=== PATIENT | male | born 1990 | race Caucasian/White ===

== ENCOUNTER 2016-06-09 11:48 | Emergency (ER) | payer SELFPAY ==
[~2016-06-09] VITALS: Ht 182.9 cm; Wt 81.6 kg
[2016-06-09] MEDS ORDERED: IV NORMAL SALINE 1000ML BAG 1,000 ML IV SCH (12:31)
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
--- NOTE | 2016-06-09 12:38 | EKG ---
[facility] [address] [place] [address] Test Date: 2016-06-09 Test Time: 11:58:48 Pat Name: MARCE SNELL Department: Room: Gender: M Certified Pharmacy Tech: : [id number] Requested By: MAURICIO MONDRAGON Order Number: [id number] Reading MD: Toy Wise Measurements Intervals Kent Rate: 81 P: 56 IL: 162 QRS: 61 QRSD: 88 T: 15 QT: 352 QTc: 409 Interpretive Statements SINUS RHYTHM Electronically Signed On 06-09-2016 14:08:58 SYSTEMS TECHNICIAN by Toy Wise
[2016-06-09] MEDS ORDERED: ASPIRIN 81 MG TAB.CHEW PO ONE (12:45)
[2016-06-09] MEDS ORDERED: FENTANYL PF 100 MCG/2 ML VIAL. IV PRN (12:45)
--- NOTE | 2016-06-09 12:54 | RAD ---
Indication: Left-sided chest pain. Time of exam 12:43 PM No prior studies are available for comparison. FINDINGS: The heart size is normal. The lungs are clear. No pleural effusion or pneumothorax is identified. The pulmonary vascularity is normal. IMPRESSION: No acute abnormality detected.
[2016-06-09 13:23] LABS: BASO # 0.1 x10^3/uL (0.0-0.2); BASO % 1 % (0-3); EOS % 2 % (0-3); HEMATOCRIT 45.5 % (39.0-53.0); HEMOGLOBIN 15.2 g/dL (13.0-17.5); LYMPH # 1.9 x10^3/uL (1.0-4.8); LYMPH % 19 % (24-48); MEAN CORPUSCULAR HEMOGLOBIN 31 pg (25-35); MEAN CORPUSCULAR HGB CONC 33 g/dL (31-37); MEAN CORPUSCULAR VOLUME 93 fL (79-100); MONO % 5 % (0-9); NEUT % 73 % (31-73); PLATELET COUNT 156 x10^3/uL (140-400); RED CELL DISTRIBUTION WIDTH 13.2 % (11.5-14.5); WHITE BLOOD COUNT 9.6 x10^3/uL (4.0-11.0)
[2016-06-09 13:38] LABS: GFR 89.6; POTASSIUM 4.1 mmol/L (3.5-5.1)
[2016-06-09 13:44] LABS: ALBUMIN 4.3 g/dL (3.4-5.0); DIRECT BILIRUBIN 0.1 mg/dL (0.0-0.2); MAGNESIUM 1.9 mg/dL (1.8-2.4); TOTAL BILIRUBIN 0.4 mg/dL (0.2-1.0); TOTAL PROTEIN 7.1 g/dL (6.4-8.2)
[2016-06-09 13:51] LABS: CKMB INDEX 0.6 % (0-4); CKMB MASS 1.9 ng/mL (0.0-3.6)
[2016-06-09 14:35] VITALS: BP 117/74
[2016-06-09 14:44] LABS: BILIRUBIN,URINE NEGATIVE (NEG); GLUCOSE,URINE NEGATIVE (NEG); NITRITE,URINE NEGATIVE (NEG); PROTEIN,URINE NEGATIVE (NEG-TRACE); UROBILINOGEN,URINE 0.2 mg/dL (0.2 mg/dL)
[2016-06-09] MEDS ORDERED: NAPR500T PO (14:49)
[2016-06-09] MEDS ORDERED: HYDR-971 PO (14:49)
[2016-06-09 14:51] LABS: BARBITURATES NEG (NEG); BENZODIAZEPINES NEG (NEG); CANNABINOIDS POS (NEG); COCAINE NEG (NEG); METHADONE NEG (NEG); OPIATES NEG (NEG); PHENCYCLIDINE NEG (NEG)
[2016-06-09 14:52] LABS: ETHANOL, URINE NEG (NEG)
[2016-06-09 15:00] LABS: BACTERIA,URINE 0 /HPF (0-FEW); RBC,URINE RARE /HPF (0-2); SQUAMOUS EPITHELIAL CELL,UR FEW /LPF; WBC,URINE RARE /HPF (0-4)
== END 2016-06-09 15:38 | disposition home or self-care (01) ==
LOC: ER 11:48
DX: R07.82 Intercostal pain (principal); R09.81 Nasal congestion; R05 Cough; F17.210 Nicotine dependence, cigarettes, uncomplicated; F12.10 Cannabis abuse, uncomplicated; G89.29 Other chronic pain
CPT/HCPCS: 36415; 71020; 80048; 80076; 81001; 82553; 83690; 83735; 84484; 85027; 85379; 93005; 96360; 99285; G0481; J7030

== ENCOUNTER 2016-07-29 09:56 | Emergency (ER) | payer SELFPAY ==
[~2016-07-29] VITALS: Ht 180.3 cm; Wt 72.6 kg
[~2016-07-29 09:56] MED LIST: HYDR-971 PO; NAPR500T PO
[2016-07-29 09:59] VITALS: BP 133/88
[2016-07-29] MEDS ORDERED: HYDR-971 PO (10:23)
[2016-07-29] MEDS ORDERED: SULF1TAB24 PO (10:23)
--- NOTE | 2016-07-29 10:23 | PHYS DOC ---
Past Medical History Past Medical History: No Pertinent History, Other Additional Past Medical Histor: chronic pain Past Surgical History: Other Additional Past Surgical Histo: Chest tube; I&D Alcohol Use: None Drug Use: Marijuana Social History Narrative: last use 2 days ago Adult General Chief Complaint Chief Complaint: ABSCESS HPI HPI Patient is a 26 year old male presents emergency department stating as an abscess on his left buttocks. He states he's had this approximately one week. He denies any drainage or discharge from the site. He states that he has had this in the past in which they've had opened and drained. He states he did have packing at that time. He denies any nausea vomiting fever or chills. Review of Systems Review of Systems Constitutional: Denies fever or chills [] Eyes: Denies change in visual acuity, redness, or eye pain [] HENT: Denies nasal congestion or sore throat [] Respiratory: Denies cough or shortness of breath [] Cardiovascular: No additional information not addressed in HPI [] GI: Denies abdominal pain, nausea, vomiting, bloody stools or diarrhea [] : Denies dysuria or hematuria [] Musculoskeletal: Denies back pain or joint pain [] Integument: Denies rash or skin lesions. C/o abscess to left buttock Neurologic: Denies headache, focal weakness or sensory changes [] Current Medications Current Medications Current Medications Medications (Trade) Dose Ordered Sig/[facility] Start Time Stop Time Status Last Admin Dose Admin Lidocaine/Sodium Bicarbonate (Buffered Lidocaine 1%) 20 ml 1X ONCE 07/29/16 10:45 07/29/16 10:46 07/29/16 10:31 20 ML Allergies Allergies Allergies Coded Allergies Type Severity Reaction Last Updated Verified No Known Drug Allergies 08/16/15 No Physical Exam Physical Exam Constitutional: Well developed, well nourished, no acute distress, non-toxic appearance. [] HENT: Normocephalic, atraumatic, bilateral external ears normal, oropharynx moist, no oral exudates, nose normal. [] Eyes: PERRLA, EOMI, conjunctiva normal, no discharge. [] Neck: Normal range of motion, no tenderness, supple, no stridor. [] Cardiovascular:Heart rate regular rhythm Lungs & Thorax: no respiratory distress noted Skin: Warm, dry, no erythema, no rash. Patient with abscess nickel size that is red, warm and tender, area is fluctuant. Back: No tenderness Extremities: No tenderness, no cyanosis, no clubbing, ROM intact, no edema. [] Neurologic: Alert and oriented X 3, normal motor function, normal sensory function, no focal deficits noted. [] Psychologic: Affect normal, judgement normal, mood normal. [] Current Patient Data Vital Signs Vital Signs Date Time Temp Pulse Resp B/P Pulse Ox O2 Delivery O2 Flow Rate FiO2 07/29/16 09:59 97.4 92 18 100 Room Air 97.4 EKG EKG [] Radiology/Procedures Radiology/Procedures [] Course & Med Decision Making Course & Med Decision Making Pertinent Labs and Imaging studies reviewed. (See chart for details) Patient was provided with discharge instructions, treatment regimens and follow- up recommendations. Patient was instructed hydrocodone will cause drowsiness do not take any be alert and oriented. Patient agrees with discharge instructions treatment regimens and follow-up recommendations. He was recommended to follow- up in the next 2-3 days. [] Dragon Disclaimer Dragon Disclaimer This electronic medical record was generated, in whole or in part, using a voice recognition dictation system. Departure Departure Impression: Primary Impression: Abscess Disposition: 01 HOME, SELF-CARE Condition: STABLE Referrals: NO PCP (PCP) Patient Instructions: Abscess, [id number], Incision and Drainage, Care After Additional Instructions: Activity as tolerated Medication as prescribed Hydrocodone will cause drowsiness do not take if you need to be alert and oriented Ibuprofen 800 mg every 8 hours with food, stop taking if you develop upset stomach Warm moist packs to the area Followup with 2-3 days for packing removal Return to emergency department as needed for signs and symptoms that become worse. Scripts Hydrocodone/Apap 5-325 (Marshall 5-325 Tablet)1 Each Tablet1 Tab PO PRN Q6HRS PRN PAIN #10 TAB Prov:KRANTHI STEPHENSON KNIFE CHANGER 07/29/16 Sulfamethoxazole/Trimethoprim (Bactrim Ds Tablet)1 Each Tablet1 Tab PO BID #20 TAB Prov:KRANTHI STEPHENSON KNIFE CHANGER 07/29/16 Incision and Drainage Incision and Drainage : Site: left buttock Blade Size: 11 I & D Procedure: betadine prep sterile drapes applied Progress Site was cleaned with Betadine. 1% lidocaine buffered with 3 mL injected into the area. #11 blade was used to incise the area with thick yellow foul odor secretions noted. KRANTHI STEPHENSON APRN Jul 29, 2016 10:23
[2016-07-29] MEDS ORDERED: LIDOCAINE 1% / SOD BICARB 8.4% 20 ML VIAL. IJ ONE (10:45)
== END 2016-07-29 10:45 | disposition home or self-care (01) ==
LOC: ER 09:56
DX: L02.31 Cutaneous abscess of buttock (principal); G89.29 Other chronic pain; F12.10 Cannabis abuse, uncomplicated
CPT/HCPCS: 10060; 99283-25

== ENCOUNTER 2017-01-25 14:20 | Emergency (ER) | payer SELFPAY ==
[~2017-01-25] VITALS: Ht 182.9 cm; Wt 81.6 kg
[~2017-01-25 14:20] MED LIST changes: +SULF1TAB24 PO
[2017-01-25 14:26] VITALS: BP 150/77
[2017-01-25] MEDS ORDERED: AMOX500C PO (14:48)
--- NOTE | 2017-01-25 14:48 | PHYS DOC ---
Past Medical History Past Medical History: Other Additional Past Medical Histor: chronic back pain Past Surgical History: Other Additional Past Surgical Histo: Chest tube; I&D Alcohol Use: None Drug Use: Marijuana Adult General Chief Complaint Chief Complaint: [facility] HPI Patient is a 26 year old male presents to the emergency department stating that he's been having left lower dental pain and discomfort for the last 2 weeks. He states that he has been unable to eat or drink any type of fluids. He states that he has been having increased pain and discomfort denies fever, chills or any nausea vomiting. He states that he had some old amoxicillin in which she had not finished from previous dental issues that he started taken. He states that he's been taken Tylenol without any relief. He states that he is trying to get a dark dentist appointment set up however he does not have one at this time. Patient does have a history of smoking. Patient does have a missing tooth noted at the #20 area he is complaining of pain at the #19 tooth. #18 tooth appears to have an abscess around it. Patient does appear to have some dental caries. Review of Systems Review of Systems Constitutional: Denies fever or chills [] Eyes: Denies change in visual acuity, redness, or eye pain [] HENT: Denies nasal congestion or sore throat. C/o dental pain Respiratory: Denies cough or shortness of breath [] Cardiovascular: No additional information not addressed in HPI [] GI: Denies abdominal pain, nausea, vomiting, bloody stools or diarrhea [] : Denies dysuria or hematuria [] Musculoskeletal: Denies back pain or joint pain [] Integument: Denies rash or skin lesions [] Neurologic: Denies headache, focal weakness or sensory changes [] Endocrine: Denies polyuria or polydipsia [] Allergies Allergies Allergies Coded Allergies Type Severity Reaction Last Updated Verified No Known Drug Allergies 08/16/15 No Physical Exam Physical Exam Constitutional: Well developed, well nourished, no acute distress, non-toxic appearance. [] HENT: Normocephalic, atraumatic, bilateral external ears normal, oropharynx moist, no oral exudates, nose normal. Bilateral tympanic membranes appear to be normal. Patient does have a missing tooth at the #20, #19 tooth is tender to palpation. However the #18 tooth appears to have an abscess noted around the area. Patient's mouth appears to be very moist with no exudate noted in the throat area. Eyes: PERRLA, EOMI, conjunctiva normal, no discharge. [] Neck: Normal range of motion, no tenderness, supple, no stridor. [] Cardiovascular:Heart rate regular rhythm, no murmur [] Lungs & Thorax: Bilateral breath sounds clear to auscultation [] Skin: Warm, dry, no erythema, no rash. [] Back: No tenderness Extremities: No tenderness, no cyanosis, no clubbing, ROM intact, no edema. [] Neurologic: Alert and oriented X 3, normal motor function, normal sensory function, no focal deficits noted. [] Psychologic: Affect normal, judgement normal, mood normal. [] Current Patient Data Vital Signs Vital Signs Date Time Temp Pulse Resp B/P (MAP) Pulse Ox O2 Delivery O2 Flow Rate FiO2 01/25/17 14:26 98.9 83 18 97 Room Air 98.9 EKG EKG [] Radiology/Procedures Radiology/Procedures [] Course & Med Decision Making Course & Med Decision Making Pertinent Labs and Imaging studies reviewed. (See chart for details) Patient will be provided with amoxicillin for 10 days. He was recommended to take this 4 times a day. He was instructed to use ibuprofen for pain and discomfort as well as Tylenol. Explained to patient that the antibiotic is what is going to help the pain more so than the pain medication. Also spoke with patient regards to using Benadryl to help with sleeping aid. Patient feels that he needs to have something stronger than ibuprofen or Tylenol at this point in time. Patient was instructed that the has put a restriction on the use of stronger pain medications area and recommended patient to contact the DA in regards to the restriction. Patient will be discharged home in stable condition with recommendations to follow-up with the dentist within the next week. Signs and symptoms to return back to emergency department has been provided. All questions and concerns have been answered. Patient continues to state, "this was a waste of my fuckin time." [] Dragon Disclaimer Dragon Disclaimer This electronic medical record was generated, in whole or in part, using a voice recognition dictation system. Departure Departure Impression: Primary Impression: Pain, dental Disposition: HOME, SELF-CARE Condition: STABLE Referrals: NO PCP (PCP) Patient Instructions: Dental Pain, [id number] Additional Instructions: Activity as tolerated Medication as prescribed Take all the antibiotics as prescribed Tylenol or Ibuprofen for pain and discomfort Followup with dentist in 1 week Return to emergency department as needed for signs and symptoms that become worse. Scripts Amoxicillin (AMOXICILLIN) 500 Mg Capsule 1 CAP PO QID, #40 CAP Prov: KRANTHI STEPHENSON APRN 01/25/17 KRANTHI STEPHENSON APRN Jan 25, 2017 14:48
== END 2017-01-25 15:00 | disposition home or self-care (01) ==
LOC: ER 14:20
DX: K04.7 Periapical abscess without sinus (principal); G89.29 Other chronic pain; Z87.891 Personal history of nicotine dependence
CPT/HCPCS: 99283

== ENCOUNTER 2018-09-29 13:33 | Emergency (ER) | payer SELFPAY ==
[~2018-09-29] VITALS: Ht 180.3 cm; Wt 75.8 kg
[~2018-09-29 13:33] MED LIST changes: +AMOX500C PO; +HYDR-3164 PO; -HYDR-971 PO; +NAPR-683 PO; -NAPR500T PO
[2018-09-29] MEDS ORDERED: cefTRIAXone IM 1 GM VIAL IM ONE (14:30)
[2018-09-29] MEDS ORDERED: LIDOCAINE 1% PF 2 ML VIAL. INJ ONE (14:30)
[2018-09-29] MEDS ORDERED: HYDROcodone/APAP 5/325MG 1 TAB TABLET PO ONE (14:30)
[2018-09-29] MEDS ORDERED: AMOX500C PO (14:58)
[2018-09-29] MEDS ORDERED: HYDR-3164 PO (14:58)
--- NOTE | 2018-09-29 14:58 | PHYS DOC ---
Past Medical History Past Medical History: Other Additional Past Medical Histor: chronic back pain (LAKISHA VERDIN BLEACH PACKER) Past Surgical History: No Surgical History, Other Additional Past Surgical Histo: Chest tube; I&D (LAKISHA VERDIN APRN) Alcohol Use: None Drug Use: Marijuana (LAKISHA VERDIN APRN) Adult General Chief Complaint Chief Complaint: ABSCESS HPI HPI Patient is a 28 year old male who presents with a dental abscess to the right upper gum that he noted a couple days ago. Denies any fever. He states is not able to see a dentist because they weren't $90 upfront. Denies any fever or trismus. (LAKISHA VERDIN APRN) Review of Systems Review of Systems Constitutional: Denies fever or chills [] Eyes: Denies change in visual acuity, redness, or eye pain [] HENT: Reports dental abscess. Denies nasal congestion or sore throat [] Musculoskeletal: Denies back pain or joint pain [] Integument: Denies rash or skin lesions [] Neurologic: Denies headache, focal weakness or sensory changes [] All other systems were reviewed and found to be within normal limits, except as documented in this note. (LAKISHA VERDIN APRN) Current Medications Current Medications Current Medications Medications (Trade) Dose Ordered Sig/[facility] Start Time Stop Time Status Last Admin Dose Admin Acetaminophen/ Hydrocodone Bitart (Lortab 5/325) 2 tab 1X ONCE 09/29/18 14:30 09/29/18 14:31 DC 09/29/18 14:43 2 TAB Ceftriaxone Sodium (Rocephin Im) 1 gm 1X ONCE 09/29/18 14:30 09/29/18 14:31 DC 09/29/18 14:43 1 GM Lidocaine HCl (Xylocaine-Mpf 1% 2ml Vial) 2 ml 1X ONCE 09/29/18 14:30 09/29/18 14:31 DC (ISABEL HOWELL DO) Allergies Allergies Allergies Coded Allergies Type Severity Reaction Last Updated Verified No Known Drug Allergies 08/16/15 No (ISABEL HOWELL DO) Physical Exam Physical Exam Constitutional: Well developed, well nourished, no acute distress, non-toxic appearance. [] HENT: Normocephalic, atraumatic, bilateral external ears normal, oropharynx moist, no oral exudates, nose normal. [] Right upper inner gum with two indurated areas approx. 1X1cm each consistent with an abscess no fluctuance. Severely decayed teeth. Abdomen: Bowel sounds normal, soft, no tenderness, no masses, no pulsatile masses. [] Skin: Warm, dry, no erythema, no rash. [] Back: No tenderness, no CVA tenderness. [] Extremities: No tenderness, no cyanosis, no clubbing, ROM intact, no edema. [] Neurologic: Alert and oriented X 3, normal motor function, normal sensory function, no focal deficits noted. [] Psychologic: Affect normal, judgement normal, mood normal. [] (LAKISHA VERDIN APRN) Current Patient Data Vital Signs Vital Signs Date Time Temp Pulse Resp B/P (MAP) Pulse Ox O2 Delivery O2 Flow Rate FiO2 09/29/18 15:08 87 18 125/78 (94) 100 Room Air 09/29/18 13:50 98.3 98.3 (ISABEL HOWELL DO) EKG EKG [] (LAKISHA VERDIN APRN) Radiology/Procedures Radiology/Procedures [] (LAKISHA VERDIN APRN) Course & Med Decision Making Course & Med Decision Making Pertinent Labs and Imaging studies reviewed. (See chart for details) Patient has infected dental caries and dental abscess. Discharged with amoxicillin. Provided instructions to follow-up with the dentist. List provided for local dentist. (LAKISHA VERDIN APRN) Dragon Disclaimer Dragon Disclaimer This electronic medical record was generated, in whole or in part, using a voice recognition dictation system. (LAKISHA VERDIN APRN) Departure Departure Impression: Primary Impression: Dentalgia Additional Impressions: Abscess, dental Infected dental caries Disposition: 01 HOME, SELF-CARE Condition: STABLE Referrals: NO PCP (PCP) Follow-up with the dentist from the list provided Patient Instructions: Dental Abscess Additional Instructions: You were evaluated in the emergency room for dental abscess. Please complete your prescribed antibiotics. Follow up with a dentist from the list provided Scripts Hydrocodone/Apap 5-325 (NORCO 5-325 TABLET) 1 Each Tablet 1 TAB PO Q6HRS, #10 TAB Prov: LAKISHA VERDIN APRN 09/29/18 Amoxicillin (AMOXICILLIN) 500 Mg Capsule 1 CAP PO BID, #20 CAP Prov: LAKISHA VERDIN APRN 09/29/18 Attending Signature Attending Signature I have reviewed the PA/ELECTROMATIC TYPIST's note and plan of care. I was available for consultation as needed during the patient's visit in the emergency department. I agree with the clinical impression, plan, and disposition. (ISABEL HOWELL DO) Problem Qualifiers LAMBERTLAKISHA BLEACH PACKER September 29, 2018 14:58 ISABEL HOWELL DO September 30, 2018 12:47
[2018-09-29 15:08] VITALS: BP 125/78
== END 2018-09-29 15:08 | disposition home or self-care (01) ==
LOC: ER 13:33
DX: K04.7 Periapical abscess without sinus (principal); K02.9 Dental caries, unspecified; G89.29 Other chronic pain
CPT/HCPCS: 96372; 99283; J0696

== ENCOUNTER 2021-05-29 14:52 | Emergency (ER) | payer OTHER ==
[~2021-05-29] VITALS: Ht 182.9 cm; Wt 91.9 kg
[2021-05-29 16:30] VITALS: BP 114/76
[2021-05-29] MEDS ORDERED: DEXAMETHASONE 4 MG TABLET PO ONE (17:00)
--- NOTE | 2021-05-29 17:01 | RAD ---
EXAM: Chest, single view. HISTORY: Cough. COMPARISON: 06/09/2016 FINDINGS: A frontal view of the chest is obtained. There is no infiltrate, pleural effusion or pneumo thorax. The heart is normal in size. IMPRESSION: No acute pulmonary finding. Electronically signed by: Deyanira Bowling MD (05/29/2021 4:59 PM) [id number]
[2021-05-29 17:20] LABS: INFLUENZA A PATIENT NEGATIVE (NEGATIVE); INFLUENZA B PATIENT NEGATIVE (NEGATIVE)
[2021-05-29] MEDS ORDERED: ALBU2.5V8 INH (17:25)
--- NOTE | 2021-05-29 17:25 | PHYS DOC ---
Past Medical History Past Medical History: Other Additional Past Medical Histor: chronic back pain Past Surgical History: No Surgical History, Other Additional Past Surgical Histo: Chest tube; I&D Smoking Status: Current Every Day Smoker Additional Information: 1 ppd Alcohol Use: None Drug Use: Marijuana General Adult EDM: Chief Complaint: COUGH HPI: HPI: Patient is a 31 year old male with 7 days of cough, chest pressure, shortness of air that is worse with walking, nasal congestion. States that his girlfriend's little brother was positive for COVID and she had been around him. He is a smoker. He states he had asthma as a child. Review of Systems: Review of Systems: Constitutional: Denies fever or +chills. [] Eyes: Denies change in visual acuity. [] HENT: + nasal congestion or +sore throat. [] Respiratory: +cough or +shortness of breath. [] Cardiovascular: + Chest tightness. Denies chest pain or edema. [] GI: Denies abdominal pain, nausea, vomiting, bloody stools or diarrhea. [] : Denies dysuria. [] Musculoskeletal: Denies back pain or joint pain. [] Integument: Denies rash. [] Neurologic: Denies headache, focal weakness or sensory changes. [] Endocrine: Denies polyuria or polydipsia. [] Lymphatic: Denies swollen glands. [] Psychiatric: Denies depression or anxiety. [] Heart Score: C/O Chest Pain: No Current Medications: Current Medications Medications (Trade) Dose Ordered Sig/Alan Start Time Stop Time Status Last Admin Dose Admin Dexamethasone (Decadron) 10 mg 1X ONCE 05/29/21 17:00 05/29/21 17:01 NM Allergies: Allergies: Allergies Coded Allergies Type Severity Reaction Last Updated Verified No Known Drug Allergies 05/29/21 No Physical Exam: PE: Constitutional: Well developed, well nourished, no acute distress, non-toxic appearance. [] HENT: Normocephalic, atraumatic, bilateral external ears normal, oropharynx moist, no oral exudates, nose normal. [] Eyes: PERRLA, EOMI, conjunctiva normal, no discharge. [] Neck: Normal range of motion, no tenderness, supple, no stridor. [] Cardiovascular:Heart rate regular rhythm, no murmur [] Lungs & Thorax: Bilateral upper breath sounds clear and lower diminished to auscultation [] Abdomen: Bowel sounds normal, soft, no tenderness, no masses, no pulsatile masses. [] Skin: Warm, dry, no erythema, no rash. [] Back: No tenderness, no CVA tenderness. [] Extremities: No tenderness, no cyanosis, no clubbing, ROM intact, no edema. [] Neurologic: Alert and oriented X 3, normal motor function, normal sensory function, no focal deficits noted. [] Psychologic: Affect normal, judgement normal, mood normal. [] Current Patient Data: Vital Signs: Vital Signs Date Time Temp Pulse Resp B/P (MAP) Pulse Ox O2 Delivery O2 Flow Rate FiO2 05/29/21 16:30 99.0 89 18 114/76 (89) 98 Room Air 99.0 EKG: EKG: [] Radiology/Procedures: Radiology/Procedures: [] Impression: [facility] [address] [place], [place] [id number] IMAGING REPORT Signed PATIENT: MARCE SNELL ACCOUNT: [id number] : 1990 LOCATION: ER AGE: 31 SEX: M EXAM STATUS: REG ER ORD. PHYSICIAN: KRANTHI BUCK APRN REASON: cough PROCEDURE: PORTABLE CHEST 1V EXAM: Chest, single view. HISTORY: Cough. COMPARISON: 06/09/2016 FINDINGS: A frontal view of the chest is obtained. There is no infiltrate, pleural effusion or pneumothorax. The heart is normal in size. IMPRESSION: No acute pulmonary finding. Electronically signed by: Deyanira Bowling MD (05/29/2021 4:59 PM) [id number] DICTATED and SIGNED BY: DEYANIRA BOWLING MD DATE: 05/29/21 [id number] 0 Course & Med Decision Making: Course & Med Decision Making Pertinent Labs and Imaging studies reviewed. (See chart for details) COVID-19 CRITERIA: The patient was evaluated during the global COVID-19 pandemic, and that diagnosis was suspected/considered upon their initial presentation. Their evaluation, treatment and testing was consistent with curr ent guidelines for patients who present with complaints or symptoms that may be related to COVID-19. See HPI. Alert and oriented x4. Ambulatory steady gait. Speaks in full clear sentences. Lungs are clear in upper lobes and diminished in lower lobes. Skin pink warm and dry. Throat is pink with exudates or swelling. X-ray shows no acute findings. Patient is positive for COVID. [] [place] Disclaimer: Donovan Disclaimer: This electronic medical record was generated, in whole or in part, using a voice recognition dictation system. Departure Departure Impression: Primary Impression: COVID-19 Additional Impression: Cough Disposition: HOME / SELF CARE / HOMELESS Condition: STABLE Referrals: NO PCP (PCP) Patient Instructions: Cough, Adult, Fever, Adult Additional Instructions: Quarantine for another 4 days. Make sure you tell work that you are COVID- positive. Drink plenty of fluids to stay hydrated. Continue to not smoke if all possible. Alternate Tylenol and ibuprofen to help with your symptoms. You have been tested for or diagnosed with COVID-19. It is an infection caused by a new type of coronavirus. COVID-19 will cause cold-like or mild flu symptoms in most. It can cause more severe symptoms like problems breathing in some. There is no treatment for COVID-19. The body will clear the infection over time. Self-care will help to ease discomfort. Steps to Take: Self-Care Rest as needed. Healthy habits may help you feel better. Steps include: Choose healthy foods including fruits and vegetables. Drink water throughout the day. Get plenty of sleep each night. If you smoke, try to quit. It may ease breathing. Avoid alcohol. Keep Others Healthy The virus can spread to others. Droplets are released every time you sneeze or cough. The droplets can get into the mouth, nose, or eyes of people near you and lead to infection. To lower the chances of spreading COVID-19 to others: Stay at home until your doctor has said it is safe to leave. If you tested positive this will mean staying isolated until both of the following are true: At least 7 days have passed since the start of illness. You are free of fever for at least 72 hours without the use of medicine. During this time: - Avoid public areas, events, or transportation. Do not return to work or school until your doctor has said it is safe to do so. - Call ahead if you need to go to a medical center. Let them know you may have COVID-19. It will help them guide you where to go. They may also ask you to wear a facemask when you come to the office. - If you call for emergency medical services, let them know you may have COVID- 19. While at home: - Try to avoid close contact with others. Stay about 6 feet away. - If possible, spend most of your time in a separate room from others. - Use a face mask if you will be in close contact with others such as sharing a room or vehicle. - Have someone wipe down common surfaces in the home. Use household forging machine operator every day on areas like doorknobs, counters, or sinks. - Cough or sneeze into a tissue. Throw the tissue away right after use. If a tissue is not available, cough or sneeze into your elbow. - Wash your hands often. Wash them after sneezing or coughing. Use soap and water and wash for at least 20 seconds. Alcohol based hand flue cleaner can be used if soap and water is not available. - Do not prepare food for others. Avoid sharing personal items like forks, spoons, or toothbrushes. - Avoid close contact with pets while you are sick. There is no evidence of the virus passing to pets. This is a safety step until more is known about this virus. Isolation can be frustrating. Social interaction can help. Keep in touch with friends and family through phone and tech options. You can still interact with others in your home, just keep a safe distance of about 6 feet. Follow-up: Your doctors office will check in with you to see if there are any changes in your health. You may be asked to keep track of symptoms to share with them. They will also let you know when you are clear to be in public again. Problems to Look Out For: Contact your doctor if your recovery is not going as you expect. Get emergency care if you have problems such as: - Trouble breathing - Nonstop chest pain or pressure - Changes in awareness, confusion, or problems waking - Lips or face have bluish color - Worsening of symptoms If you think you have an emergency, call for emergency medical services right away. As taken from [facility] Albuterol Sulfate (PROAIR HFA INHALER) 8.5 Gm Hfa.aer.ad 1-2 PUFF INH PRN Q6HRS PRN for SHORTNESS OF BREATH, #1 EACH 0 Refills Prov: KRANTHI BUCK APRN 05/29/21 KRANTHI BUCK APRN May 29, 2021 17:25
== END 2021-05-29 17:38 | disposition home or self-care (01) ==
LOC: ER 14:52
DX: U07.1 COVID-19 (principal); G89.29 Other chronic pain; F17.200 Nicotine dependence, unspecified, uncomplicated
CPT/HCPCS: 71045; 87428; 99284